=== PATIENT | female | born 1955 | race Caucasian/White ===

== ENCOUNTER 2022-01-02 14:28 | Inpatient (IN) ==
[2022-01-02] MEDS ORDERED: Heparin DRIP 25,000 UNITS BAG 25,000 UNITS/500 ML BAG IV SCH (14:45)
[2022-01-02] MEDS ORDERED: Heparin 5000 UNITS/ML 1 mL VIAL IV SCH (15:00)
[2022-01-02] MEDS ORDERED: Albuterol 2.5mg/3 ml (0.083%) NEB.SOLN INH PRN (15:45)
[2022-01-02 16:24] LABS: PCO2 Arterial 29 mmHg (35-45); PO2 Arterial 84 mmHg (80-100)
[2022-01-02] MEDS: Heparin 5000 UNITS/ML 1 mL VIAL IV SCH (23:29)
[2022-01-02] MEDS: Heparin DRIP 25,000 UNITS BAG 25,000 UNITS/500 ML BAG IV SCH (23:30)
[2022-01-03 05:58] LABS: ABS Basophils 0.1 10^3/ul (0-0.2); ABS Eosinophils 0.2 10^3/ul (0-0.6); ABS Lymphocytes 1.4 10^3/ul (1.0-4.8); ABS Monocytes 0.5 10^3/ul (0-0.8); ABS Neutrophils 3.8 10^3/ul (1.5-7.7); Eosinophil % 3.7 %; Hematocrit 39 % (35-47); Hemoglobin 13.3 g/dL (12.0-16.0); Lymphocyte % 23.8 %; Mean Corpuscular HGB Conc 34 g/dL (31-36); Mean Corpuscular Hemoglobin 32 pg (27-31); Mean Corpuscular Volume 93 fL (80-97); Mean Platelet Volume 8.6 fL (7.4-10.4); Nucleated Red Blood Cells % 0.1; Platelet Count 151 10^3/uL (150-450); Red Blood Count 4.18 10^6 /uL (3.70-4.87); Red Cell Distribution Width 14 % (10-15); White Blood Count 6.1 10^3/uL (3.5-10.8)
[2022-01-03 06:27] LABS: Blood Urea Nitrogen 11 mg/dL (6-24); CO2 Carbon Dioxide 26 mmol/L (22-32); Calcium 9.5 mg/dL (8.6-10.3); Chloride 102 mmol/L (101-111); Glucose 118 mg/dL (70-100); Sodium 137 mmol/L (135-145); eGFR CKD-EPI 78.4 (>60)
[2022-01-03 06:31] LABS: Anion Gap 9 mmol/L (2-11)
[2022-01-03 06:46] LABS: INR 1.06 (0.86-1.15)
[2022-01-03] MEDS: Tiotropium Brom/Olodaterol MDI INH SCH (07:09)
[2022-01-03 08:18] LABS: Magnesium 2.1 mg/dL (1.9-2.7)
[2022-01-03] MEDS ORDERED: Perflutren Lipid Microsphere 3 ML VIAL ONE (08:21)
[2022-01-03] MEDS: Multivitamins/Minerals TAB PO SCH (11:21)
[2022-01-03] MEDS: Heparin DRIP 25,000 UNITS BAG 25,000 UNITS/500 ML BAG IV SCH (11:24)
[2022-01-03] MEDS ORDERED: Midazolam 5 mg/5 ml VIAL 1 mg/ml 5 ml VIAL (5 mg) ONE (16:19)
[2022-01-03] MEDS ORDERED: Heparin 2 UNITS/ML 1000 mls 2,000 ML IV ONE (16:19)
[2022-01-03] MEDS ORDERED: fentaNYL 100 mcg/2 ml 50 MCG/ML VIAL ONE (16:19)
[2022-01-03] MEDS ORDERED: Iohexol 350 (CONTRAST) 200 ML MDV IV ONE (16:20)
[2022-01-03] MEDS ORDERED: Lidocaine 1% MPF 5 ML VIAL ONE (16:20)
[2022-01-03 17:46] LABS: POC SO2 80 %
[2022-01-03] MEDS ORDERED: Heparin DRIP 25,000 UNITS BAG 25,000 UNITS/500 ML BAG IV SCH (18:00)
[2022-01-03] MEDS: NS 0.9% IV ONE (18:12)
[2022-01-03] MEDS: ALTEPLASE IV ONE (18:12)
[2022-01-03 21:00] LABS: Hematocrit 37 % (35-47); Hemoglobin 12.7 g/dL (12.0-16.0)
[2022-01-04] MEDS: Ondansetron 4 mg VIAL 2 MG/ML 2 ml VIAL IV PRN ×2 (01:59→13:13)
[2022-01-04 02:30] LABS: Hematocrit 39 % (35-47); Hemoglobin 13.1 g/dL (12.0-16.0)
[2022-01-04] MEDS: Heparin DRIP 25,000 UNITS BAG 25,000 UNITS/500 ML BAG IV SCH ×2 (02:50→16:31)
[2022-01-04 04:59] LABS: Hematocrit 40 % (35-47); Hemoglobin 13.2 g/dL (12.0-16.0); Mean Corpuscular HGB Conc 33 g/dL (31-36); Mean Corpuscular Hemoglobin 31 pg (27-31); Mean Corpuscular Volume 94 fL (80-97); Red Blood Count 4.21 10^6 /uL (3.70-4.87); Red Cell Distribution Width 14 % (10-15); White Blood Count 6.2 10^3/uL (3.5-10.8)
[2022-01-04 05:11] LABS: INR 1.03 (0.86-1.15)
[2022-01-04 05:28] LABS: ABS Basophils 0.1 10^3/ul (0-0.2); ABS Eosinophils 0.2 10^3/ul (0-0.6); ABS Lymphocytes 1.3 10^3/ul (1.0-4.8); ABS Monocytes 0.5 10^3/ul (0-0.8); ABS Neutrophils 4.1 10^3/ul (1.5-7.7); Eosinophil % 3.4 %; Lymphocyte % 21.2 %; Mean Platelet Volume 8.5 fL (7.4-10.4); Nucleated Red Blood Cells % 0.1
[2022-01-04 05:29] LABS: Calcium 8.8 mg/dL (8.6-10.3); Potassium 4.1 mmol/L (3.5-5.0); eGFR CKD-EPI 85.8 (>60)
[2022-01-04] MEDS: Multivitamins/Minerals TAB PO SCH (08:30)
[2022-01-04 09:16] LABS: Hematocrit 39 % (35-47); Hemoglobin 13.1 g/dL (12.0-16.0)
[2022-01-04] MEDS ORDERED: Furosemide 20 mg/2 ml IV VIAL IV SLOW PU ONE (09:34)
[2022-01-04] MEDS: Tiotropium Brom/Olodaterol MDI INH SCH (09:37)
[2022-01-04] MEDS: Heparin 5000 UNITS/ML 1 mL VIAL IV SCH (09:39)
[2022-01-04] MEDS ORDERED: Iohexol 350 (CONTRAST) 500 ML MDV IV ONE (13:53)
[2022-01-04 21:06] LABS: Hematocrit 37 % (35-47); Hemoglobin 12.7 g/dL (12.0-16.0)
[2022-01-05 04:30] LABS: ABS Eosinophils 0.2 10^3/ul (0-0.6); ABS Lymphocytes 1.3 10^3/ul (1.0-4.8); ABS Monocytes 0.7 10^3/ul (0-0.8); ABS Neutrophils 3.7 10^3/ul (1.5-7.7); Eosinophil % 3.1 %; Hematocrit 38 % (35-47); Hemoglobin 12.9 g/dL (12.0-16.0); Lymphocyte % 22.5 %; Mean Corpuscular HGB Conc 34 g/dL (31-36); Mean Corpuscular Hemoglobin 32 pg (27-31); Mean Corpuscular Volume 95 fL (80-97); Mean Platelet Volume 8.9 fL (7.4-10.4); Platelet Count 118 10^3/uL (150-450); Red Blood Count 4.01 10^6 /uL (3.70-4.87); Red Cell Distribution Width 14 % (10-15)
[2022-01-05] MEDS: Heparin 5000 UNITS/ML 1 mL VIAL IV SCH ×2 (04:34→21:25)
[2022-01-05 04:43] LABS: Calcium 8.9 mg/dL (8.6-10.3); Magnesium 2.1 mg/dL (1.9-2.7); Potassium 4.7 mmol/L (3.5-5.0)
[2022-01-05] MEDS: Tiotropium Brom/Olodaterol MDI INH SCH (07:17)
[2022-01-05] MEDS: Heparin DRIP 25,000 UNITS BAG 25,000 UNITS/500 ML BAG IV SCH ×2 (07:59→23:52)
[2022-01-05] MEDS: Multivitamins/Minerals TAB PO SCH (07:59)
[2022-01-05] MEDS ORDERED: diPHENhydraMINE 25 mg TAB PO ONE (17:29)
[2022-01-06 04:08] LABS: ABS Eosinophils 0.2 10^3/ul (0-0.6); ABS Lymphocytes 1.4 10^3/ul (1.0-4.8); ABS Monocytes 0.7 10^3/ul (0-0.8); ABS Neutrophils 4.1 10^3/ul (1.5-7.7); Eosinophil % 3.2 %; Hematocrit 35 % (35-47); Hemoglobin 12.2 g/dL (12.0-16.0); Lymphocyte % 21.6 %; Mean Corpuscular HGB Conc 35 g/dL (31-36); Mean Corpuscular Hemoglobin 32 pg (27-31); Mean Corpuscular Volume 94 fL (80-97); Mean Platelet Volume 9.1 fL (7.4-10.4); Platelet Count 132 10^3/uL (150-450); Red Blood Count 3.76 10^6 /uL (3.70-4.87); Red Cell Distribution Width 14 % (10-15); White Blood Count 6.4 10^3/uL (3.5-10.8)
[2022-01-06 04:55] LABS: Magnesium 2.1 mg/dL (1.9-2.7); Potassium 4.1 mmol/L (3.5-5.0)
[2022-01-06] MEDS: Multivitamins/Minerals TAB PO SCH (09:06)
[2022-01-06] MEDS: Saline FLUSH-PERIPHERAL 10 ML SYRINGE IV FLUSH SCH ×2 (09:07→18:18)
[2022-01-06] MEDS: Tiotropium Brom/Olodaterol MDI INH SCH (09:25)
[2022-01-06] MEDS: Albuterol/Ipratropium NEB.SOL (2.5/0.5 MG) 3 ML NEB.SOLN INH PRN (18:34)
[2022-01-07] MEDS: Saline FLUSH-PERIPHERAL 10 ML SYRINGE IV FLUSH SCH ×3 (02:08→16:44)
[2022-01-07 06:35] LABS: ABS Eosinophils 0.2 10^3/ul (0-0.6); ABS Lymphocytes 0.9 10^3/ul (1.0-4.8); ABS Monocytes 0.8 10^3/ul (0-0.8); Eosinophil % 2.4 %; Hematocrit 36 % (35-47); Hemoglobin 12.4 g/dL (12.0-16.0); Lymphocyte % 13.4 %; Mean Corpuscular HGB Conc 35 g/dL (31-36); Mean Corpuscular Hemoglobin 32 pg (27-31); Mean Corpuscular Volume 93 fL (80-97); Platelet Count 122 10^3/uL (150-450); Red Blood Count 3.88 10^6 /uL (3.70-4.87); Red Cell Distribution Width 14 % (10-15); White Blood Count 6.9 10^3/uL (3.5-10.8)
[2022-01-07 06:57] LABS: Calcium 9.1 mg/dL (8.6-10.3); Magnesium 2.2 mg/dL (1.9-2.7); Potassium 4.1 mmol/L (3.5-5.0); eGFR CKD-EPI 85.8 (>60)
[2022-01-07] MEDS ORDERED: Acetaminophen IV 1 GM/100ML 100 ML IV PRN (07:49)
[2022-01-07] MEDS ORDERED: Magnesium Hydroxide LIQ 30 ML UDC PO ONE (07:49)
[2022-01-07] MEDS: Tiotropium Brom/Olodaterol MDI INH SCH (08:52)
[2022-01-07] MEDS: Multivitamins/Minerals TAB PO SCH (08:58)
[2022-01-07] MEDS: Albuterol/Ipratropium NEB.SOL (2.5/0.5 MG) 3 ML NEB.SOLN INH PRN (19:48)
[2022-01-08 04:58] LABS: ABS Eosinophils 0.2 10^3/ul (0-0.6); ABS Monocytes 0.7 10^3/ul (0-0.8); ABS Neutrophils 5.2 10^3/ul (1.5-7.7); Eosinophil % 2.4 %; Hematocrit 35 % (35-47); Hemoglobin 11.8 g/dL (12.0-16.0); Lymphocyte % 13.8 %; Mean Corpuscular HGB Conc 34 g/dL (31-36); Mean Corpuscular Hemoglobin 32 pg (27-31); Mean Corpuscular Volume 93 fL (80-97); Mean Platelet Volume 9.3 fL (7.4-10.4); Platelet Count 148 10^3/uL (150-450); Red Cell Distribution Width 14 % (10-15); White Blood Count 7.1 10^3/uL (3.5-10.8)
[2022-01-08 05:20] LABS: Magnesium 2.2 mg/dL (1.9-2.7); Potassium 4.2 mmol/L (3.5-5.0); eGFR CKD-EPI 87.2 (>60)
[2022-01-08] MEDS: Tiotropium Brom/Olodaterol MDI INH SCH (07:34)
[2022-01-08] MEDS: Multivitamins/Minerals TAB PO SCH (09:06)
[2022-01-08] MEDS: Saline FLUSH-PERIPHERAL 10 ML SYRINGE IV FLUSH SCH ×3 (09:08→18:39)
[2022-01-08] MEDS ORDERED: Magnesium Hydroxide LIQ 30 ML UDC PO PRN (11:30)
[2022-01-09] MEDS ORDERED: Acetaminophen IV 1 GM/100ML 100 ML IV ONE (01:51)
[2022-01-09 06:23] LABS: ABS Eosinophils 0.3 10^3/ul (0-0.6); ABS Lymphocytes 1.2 10^3/ul (1.0-4.8); ABS Monocytes 0.7 10^3/ul (0-0.8); ABS Neutrophils 4.1 10^3/ul (1.5-7.7); Eosinophil % 4.2 %; Hematocrit 33 % (35-47); Hemoglobin 11.7 g/dL (12.0-16.0); Lymphocyte % 18.8 %; Mean Corpuscular HGB Conc 35 g/dL (31-36); Mean Corpuscular Hemoglobin 32 pg (27-31); Mean Corpuscular Volume 92 fL (80-97); Mean Platelet Volume 9.3 fL (7.4-10.4); Platelet Count 158 10^3/uL (150-450); Red Blood Count 3.62 10^6 /uL (3.70-4.87); Red Cell Distribution Width 14 % (10-15); White Blood Count 6.3 10^3/uL (3.5-10.8)
[2022-01-09 06:43] LABS: Calcium 9.2 mg/dL (8.6-10.3); Potassium 4.4 mmol/L (3.5-5.0); eGFR CKD-EPI 83.2 (>60)
[2022-01-09] MEDS: Saline FLUSH-PERIPHERAL 10 ML SYRINGE IV FLUSH SCH ×3 (06:45→16:24)
[2022-01-09] MEDS: Tiotropium Brom/Olodaterol MDI INH SCH (07:11)
[2022-01-09] MEDS: Multivitamins/Minerals TAB PO SCH (08:54)
[2022-01-10] MEDS: Saline FLUSH-PERIPHERAL 10 ML SYRINGE IV FLUSH SCH ×2 (02:35→08:45)
[2022-01-10 05:48] LABS: ABS Eosinophils 0.3 10^3/ul (0-0.6); ABS Lymphocytes 1.2 10^3/ul (1.0-4.8); ABS Monocytes 0.6 10^3/ul (0-0.8); ABS Neutrophils 3.6 10^3/ul (1.5-7.7); Eosinophil % 4.5 %; Hematocrit 34 % (35-47); Hemoglobin 11.7 g/dL (12.0-16.0); Lymphocyte % 21.2 %; Mean Corpuscular HGB Conc 35 g/dL (31-36); Mean Corpuscular Hemoglobin 32 pg (27-31); Mean Corpuscular Volume 93 fL (80-97); Platelet Count 182 10^3/uL (150-450); Red Blood Count 3.65 10^6 /uL (3.70-4.87); Red Cell Distribution Width 13 % (10-15); White Blood Count 5.6 10^3/uL (3.5-10.8)
[2022-01-10 06:01] LABS: Calcium 8.9 mg/dL (8.6-10.3); Magnesium 2.4 mg/dL (1.9-2.7); Potassium 4.4 mmol/L (3.5-5.0); eGFR CKD-EPI 77.2 (>60)
[2022-01-10] MEDS: Tiotropium Brom/Olodaterol MDI INH SCH (07:46)
[2022-01-10] MEDS: Multivitamins/Minerals TAB PO SCH (08:42)
[2022-01-10 13:28] VITALS: BP 118/41
== END 2022-01-10 14:55 | disposition home or self-care (01) | DRG 175 ==
LOC: ED 14:28 → ICU 17:17 → SUATTDRO 17:40 → MEDTELE 01-06 11:24
PROVIDERS: ADMIT Internal Medicine Critical Care Medicine; ATTEND Internal Medicine